=== PATIENT | male | born 1935 | race Caucasian/White ===

== ENCOUNTER 2020-06-19 07:33 | Day surgery (SDC) | payer MEDICARE, BC ==
[2020-06-19] VITALS (9 sets, daily range): BP systolic 116–140; BP diastolic 51–65
[~2020-06-19] VITALS: Ht 180.3 cm; Wt 135.0 kg
[2020-06-19] MEDS ORDERED: normal saline 1,000 ML IV SCH (08:00)
[2020-06-19] MEDS ORDERED: diphenhydrAMINE 25mg capsule PO PRN (08:00)
[2020-06-19] MEDS ORDERED: fentaNYL/PF 50MCG/1 ML 2ML syringe ONE ×2 (09:02→09:53)
[2020-06-19] MEDS ORDERED: iohexol 350MG/ML 100ml bottle IV ONE (09:03)
[2020-06-19] MEDS ORDERED: midazolam 2 mg/2 ml injection ONE ×3 (09:03→09:53)
[2020-06-19] MEDS ORDERED: heparin 1,000unit/ml 10ml vial 10 ML ONE (09:03)
[2020-06-19] MEDS ORDERED: iohexol 350 MG/ML 50ML vial IV ONE (09:03)
[2020-06-19] MEDS ORDERED: LIDOcaine 1% (10mg/ml)w/preservative injection 20ml MDV ONE (09:03)
[2020-06-19 09:27] LABS: BASOPHILS # (AUTO) 0.1 X10'3 (0-0.2); BASOPHILS % (AUTO) 1.3 % (0-1); EOSINOPHILS # (AUTO) 0.3 X10'3 (0-0.9); EOSINOPHILS % (AUTO) 6.2 % (0-6); HEMOGLOBIN 12.4 g/dl (14.0-17.9); LYMPHOCYTES # (AUTO) 1.4 X10'3 (1.1-4.8); LYMPHOCYTES % (AUTO) 32.9 % (21-51); MEAN CORPUSCULAR HEMOGLOBIN 33.2 PG (27.0-31.0); MEAN CORPUSCULAR HGB CONC 34.5 g/dL (33.0-36.5); MEAN CORPUSCULAR VOLUME 96.4 FL (78-98); MEAN PLATELET VOLUME 8.8 FL (7.4-10.4); MONOCYTES # (AUTO) 0.5 X10'3 (0-0.9); MONOCYTES % (AUTO) 10.6 % (2-12); NEUTROPHILS # (AUTO) 2.1 X10'3 (1.8-7.7); PLATELET COUNT 116 X10'3 (140-440); RED BLOOD COUNT 3.74 X10'6 (4.70-6.10); RED CELL DISTRIBUTION WIDTH 12.8 % (11.5-14.5); WHITE BLOOD COUNT 4.3 X10'3 (4.5-11.0)
[2020-06-19 09:30] LABS: ALBUMIN 3.8 G/DL (3.4-5.0); ANION GAP 9 (8-16); BLOOD UREA NITROGEN 29 MG/DL (7-18); BUN/CREATININE RATIO 23.4 (5.4-32.0); CALCIUM 8.9 MG/DL (8.5-10.1); CHLORIDE 106 MMOL/L (99-107); CREATININE 1.24 MG/DL (0.60-1.10); GLUCOSE 112 MG/DL (70-104); POTASSIUM 3.6 MMOL/L (3.5-5.1); SODIUM 140 MMOL/L (135-145); TOTAL CARBON DIOXIDE 25.1 MMOL/L (24-32); eGFR 56 ML/MIN
[2020-06-19] MEDS ORDERED: GLUC-133 PO (10:03)
[2020-06-19] MEDS ORDERED: SIMV-45 PO (10:03)
[2020-06-19] MEDS ORDERED: METO-384 PO (10:03)
[2020-06-19] MEDS ORDERED: CALC-336 PO (10:03)
[2020-06-19] MEDS ORDERED: NITR0.4T48 SL (10:03)
[2020-06-19] MEDS ORDERED: OMEG1CAP13 PO (10:03)
[2020-06-19] MEDS ORDERED: METF-438 PO (10:03)
[2020-06-19] MEDS ORDERED: ASPI-1264 PO (10:03)
[2020-06-19] MEDS ORDERED: iohexol 350 MG/1 ML 200ml bottle ONE (10:24)
[2020-06-19] MEDS ORDERED: clopidogrel 300mg tablet ONE (10:44)
[2020-06-19] MEDS ORDERED: HYDROcodone/acetaminophen 10/325mg tab PO PRN (11:20)
[2020-06-19] MEDS ORDERED: ondansetron/PF 4mg/2ml inj IV PRN (11:20)
[2020-06-19] MEDS ORDERED: HYDROcodone/acetaminophen 5mg/325mg tablet PO PRN (11:20)
[2020-06-19] MEDS ORDERED: proCHLORperazine 10 MG/2 ml inj IV PRN (11:20)
[2020-06-19] MEDS ORDERED: furosemide 20 MG/2 ML vial IV ONE (12:00)
== END 2020-06-19 14:50 | disposition home or self-care (01) ==
LOC: SSTAY O 07:33
PROVIDERS: ATTEND Internal Medicine Cardiovascular Disease
DX: R94.39 Abnormal result of other cardiovascular function study (principal); I25.10 Atherosclerotic heart disease of native coronary artery without angina pectoris; G47.33 Obstructive sleep apnea (adult) (pediatric); E66.9 Obesity, unspecified; Z68.41 Body mass index [BMI] 40.0-44.9, adult; Z79.899 Other long term (current) drug therapy; Z79.82 Long term (current) use of aspirin
CPT/HCPCS: 36415; 80048; 83735; 85025; 85610; 92978; 93458; 99152; 99153; C1751; C1753; C1760; C1769; C1874; C1887; C1894; C9600; J1644; J1940; J2001; J2250; J3010; J7030; Q9967; A4620

== ENCOUNTER 2021-01-08 10:29 | Day surgery (SDC) | payer MEDICARE, OTHER ==
[~2021-01-08] VITALS: Ht 177.8 cm; Wt 146.5 kg
[2021-01-08] VITALS (10 sets, daily range): BP systolic 108–135; BP diastolic 48–72
[~2021-01-08 10:29] MED LIST: ASPI-1264 PO; CALC-336 PO; GLUC-133 PO; METF-438 PO; METO-384 PO; NITR0.4T48 SL; OMEG1CAP13 PO; SIMV-45 PO
[2021-01-08] MEDS ORDERED: diphenhydrAMINE 25mg capsule PO PRN (11:20)
[2021-01-08] MEDS ORDERED: normal saline 1,000 ML IV SCH (11:20)
[2021-01-08] MEDS ORDERED: FLUT16SP2 BOTHNARES (11:39)
[2021-01-08] MEDS ORDERED: MULT-1085 PO (11:39)
[2021-01-08] MEDS ORDERED: HYDR-3972 PO (11:39)
[2021-01-08] MEDS ORDERED: CYAN1TAB41 PO (11:39)
[2021-01-08] MEDS ORDERED: FERR236T3 PO (11:39)
[2021-01-08] MEDS ORDERED: HYDR-3965 PO (11:39)
[2021-01-08] MEDS ORDERED: OMEG-133 PO (11:39)
[2021-01-08] MEDS ORDERED: ASCO500C17 PO (11:39)
[2021-01-08] MEDS ORDERED: CLOP75TA33 PO (11:39)
[2021-01-08] MEDS ORDERED: CYAN50003 PO (11:40)
[2021-01-08 12:06] LABS: BASOPHILS # (AUTO) 0.1 X10'3 (0-0.2); BASOPHILS % (AUTO) 1.8 % (0-1); EOSINOPHILS # (AUTO) 0.4 X10'3 (0-0.9); EOSINOPHILS % (AUTO) 10.4 % (0-6); HEMATOCRIT 39.7 % (42.0-52.0); HEMOGLOBIN 13.6 g/dl (14.0-17.9); LYMPHOCYTES # (AUTO) 1.1 X10'3 (1.1-4.8); MEAN CORPUSCULAR HEMOGLOBIN 32.6 PG (27.0-31.0); MEAN CORPUSCULAR HGB CONC 34.2 g/dL (33.0-36.5); MEAN CORPUSCULAR VOLUME 95.4 FL (78-98); MEAN PLATELET VOLUME 8.2 FL (7.4-10.4); MONOCYTES # (AUTO) 0.4 X10'3 (0-0.9); MONOCYTES % (AUTO) 11.4 % (2-12); NEUTROPHILS # (AUTO) 1.9 X10'3 (1.8-7.7); NEUTROPHILS % (AUTO) 47.4 % (42-75); PLATELET COUNT 138 X10'3 (140-440); RED BLOOD COUNT 4.16 X10'6 (4.70-6.10); RED CELL DISTRIBUTION WIDTH 12.8 % (11.5-14.5)
[2021-01-08 12:11] LABS: ALBUMIN 4.1 G/DL (3.4-5.0); ANION GAP 9 (8-16); BLOOD UREA NITROGEN 30 MG/DL (7-18); BUN/CREATININE RATIO 23.1 (5.4-32.0); CALCIUM 9.5 MG/DL (8.5-10.1); CHLORIDE 107 MMOL/L (99-107); GLUCOSE 130 MG/DL (70-104); MAGNESIUM 2.2 MG/DL (1.5-2.4); POTASSIUM 4.1 MMOL/L (3.5-5.1); SODIUM 144 MMOL/L (135-145); TOTAL CARBON DIOXIDE 28.2 MMOL/L (24-32); eGFR 53 ML/MIN
[2021-01-08] MEDS ORDERED: iohexol 350 MG/ML 50ML vial IV ONE (13:11)
[2021-01-08] MEDS ORDERED: midazolam 2 mg/2 ml injection ONE ×2 (13:11→14:40)
[2021-01-08] MEDS ORDERED: iohexol 350MG/ML 100ml bottle IV ONE (13:11)
[2021-01-08] MEDS ORDERED: fentaNYL/PF 50MCG/1 ML 2ML syringe ONE (13:11)
[2021-01-08] MEDS ORDERED: proCHLORperazine 10 MG/2 ml inj ONE (13:11)
[2021-01-08] MEDS ORDERED: LIDOcaine 1% (10mg/ml)w/preservative injection 20ml MDV ONE (13:12)
[2021-01-08] MEDS ORDERED: verapamil 2.5 mg/ml inj IV ONE (14:20)
[2021-01-08] MEDS ORDERED: heparin 1,000unit/ml 10ml vial 10 ML ONE (14:20)
[2021-01-08] MEDS ORDERED: nitroGLYCERIN-Tridil 50MG/D5W 250 ML IV ONE (14:21)
[2021-01-08] MEDS ORDERED: HYDROcodone/acetaminophen 10/325mg tab PO PRN (16:00)
[2021-01-08] MEDS ORDERED: HYDROcodone/acetaminophen 5mg/325mg tablet PO PRN (16:00)
[2021-01-08] MEDS ORDERED: proCHLORperazine 10 MG/2 ml inj IV PRN (16:00)
[2021-01-08] MEDS ORDERED: ondansetron/PF 4mg/2ml inj IV PRN (16:00)
== END 2021-01-08 19:00 | disposition home or self-care (01) ==
LOC: SSTAY O 10:29
PROVIDERS: ATTEND Internal Medicine Cardiovascular Disease
DX: R07.89 Other chest pain (principal); I25.10 Atherosclerotic heart disease of native coronary artery without angina pectoris; I35.0 Nonrheumatic aortic (valve) stenosis; I27.20 Pulmonary hypertension, unspecified; E11.9 Type 2 diabetes mellitus without complications; I10 Essential (primary) hypertension; E66.9 Obesity, unspecified; Z68.42 Body mass index [BMI] 45.0-49.9, adult; G47.30 Sleep apnea, unspecified; E78.5 Hyperlipidemia, unspecified; I25.2 Old myocardial infarction; Z95.5 Presence of coronary angioplasty implant and graft; Z79.899 Other long term (current) drug therapy
CPT/HCPCS: 36415; 80048; 82948; 83735; 85025; 85610; 93005; 93460; 99152; 99153; C1769; C1894; J0780; J1644; J2001; J2250; J3010; J7030; Q0163; Q9967; A6258; C1751; J3490